=== PATIENT | female | born 2000 | race Caucasian/White ===

== ENCOUNTER 2022-11-16 13:51 | Outpatient (CLI) | payer BC, SELFPAY ==
--- NOTE | 2022-11-16 | US_ITS ---
WS: [id number] OBSTETRICAL ULTRASOUND COMPLETE HISTORY: ANATOMY; NORMAL 2ND TRIMESTER COMPARISON: None available. Single intrauterine gestation in breech presentation. Cervix is Closed and normal length. Cervical length is 4.5 cm. Normal amount of amniotic fluid surrounds the fetus. Placenta: Anterior, no previa or abruption. Placenta grade 0 Heart: 144 BPM. Four chambers are identified. Outflow tracts are limited but unremarkable. Anatomy: Intracranial structures and spine are normal. kidneys, stomach and urinary bladd er are unremarkable. Abdominal wall, three-vessel cord and cord insertion site are normal. 4 extremities are present. profile: Unremarkable. Gender: Female. measurements: BPD = 3.9 cm = 18w0d; HC = 16.2 cm = 19w0d; AC = 13.8 cm = 19w2d; FL = 3.0 cm = 19w1d; EFW: 276 g. Biometry is internally concordant. AGA by ultrasound: 19w0d BAM by ultrasound: 04/12/2023 US/US OB >= 14 weeks fetus [id number] IMPRESSION: 1. Single intrauterine gestation of 19w0d with an BAM of 04/12/2023. 2. Unremarkable screening survey of anatomy.
== END 2022-11-16 13:52 | disposition home or self-care (01) ==
PROVIDERS: PCP Family Medicine; Visit Provider Family Medicine
DX: Z36.89 Encounter for other specified antenatal screening (principal); Z3A.19 19 weeks gestation of pregnancy
CPT/HCPCS: 76805

== ENCOUNTER 2023-04-17 07:20 | Inpatient (IN) | payer BC, SELFPAY ==
[2023-04-16] VITALS (12 sets, daily range): BP systolic 103–143; BP diastolic 60–81; PULSE 75–93; RESP 16; TEMP 36.9; BMI 32.7
[2023-04-16] MEDS: miSOPROStol 100 mcg tablet 25 MCG VAGINAL ×2 (15:11→21:35)
[2023-04-16 15:19] LABS: Basophils % 0.2 %; Eosinophils % 0.3 %; Hematocrit 35.7 % (37.0-47.0); Hemoglobin 12.5 g/dL (11.5-15.3); Lymphocytes # 2.4 10^3/uL (0.8-4.8); Mean Corpuscular Hemoglobin 34.6 pg (28.0-34.0); Mean Corpuscular Volume 98.9 fl (81-99); Mean Platelet Volume 11.6 fL (7.4-10.4); Monocytes # 0.9 10^3/uL (0.2-0.9); Monocytes % 7.2 %; Neutrophils # 9.21 10^3/uL (1.8-7.7); Neutrophils % 72.2 %; Nucleated Red Blood Cells % 0 %; Platelet Count 202 10^3/cmm (130-400); Red Blood Count 3.61 10^6/uL (4.1-5.3); Red Cell Distribution Width 12.8 % (12.1-15.1); White Blood Count 12.8 10^3/uL (4.0-10.0)
[2023-04-16] MEDS: ampicillin 2,000 MG in sodium chloride 0.9% (plus) 50 ML 100 MG IV (21:35)
[2023-04-16] MEDS: dextrose 5%-lactated ringers 1,000 ML 125 ML IV (21:35)
[2023-04-17] VITALS (122 sets, daily range): BP systolic 92–138; BP diastolic 50–89; PULSE 65–126; RESP 16–17; TEMP 36.6–37.1; O2SAT 96–99
[2023-04-17] MEDS: ampicillin 1,000 MG in sodium chloride 0.9% (plus) 50 ML 100 MG IV ×5 (01:27→17:40)
[2023-04-17] MEDS: fentaNYL 50 mcg/mL INJ 2mL IVP (05:39)
[2023-04-17] MEDS: lactated ringers 1,000 ML 999 ML IV ×2 (06:20→07:35)
--- NOTE | 2023-04-17 08:02 | P.ANESUD_ITS ---
Pre-Anesthetic Update Pre-Anesthetic Assessment: Date of Surgery/Procedure: 04/17/23 Preop Lucy gnosis: IUP Proposed Procedure: Labor Epidural Any changes to Pre-Anesthetic Assessment?: No Last Intake: 1999- 04/16/23 solid clears- current Labs Last 48hrs: Short CBC 04/16/23 Range/Units 15:00 WBC 12.8 H (4.0-10.0) 10^3/ uL Hgb 12.5 (11.5-15.3) g/dL Hct 35.7 L (37.0-47.0) % MCV 98.9 (81-99) fl Plt Count 202 (130-400) 10^3/c mm Neut % (Auto) 72.2 % Neut # (Auto) 9.21 H (1.8-7.7) 10^3/u L Vitals: Temperature 98.5 F 04/16/23 21:50 Temperature Source Oral 04/16/23 21:50 Pulse Rate 81 04/17/23 08:00 Pulse Rhythm Regular 04/16/23 13:13 Respiratory Rate 16 04/17/23 05:39 Respiratory Effort Spontaneous, Non- Labored 04/17/23 05:39 Respiratory Depth Normal 04/17/23 05:39 Respiratory Patter n Normal 04/17/23 05:39 Blood Pressure 114/67 04/17/23 08:00 Pulse Oximetry 98 04/17/23 07:58 Oxygen Delivery Me thod Room Air 04/16/23 13:13 Cardiac Studies: No Data to Display Anesthesia Procedures Epidural: Time Out Performed: Yes Consents Signed: Procedure Consent Consent: requested by attending/covering physician and from patient Lumbar Level: L3-L4 Epidural position: sitting Epidural procedure: sterile prep of area, 1% lidocaine to numb the area, negative for paresthesia passed, test dose given, 1.5% xylocaine 1:200k epi (5 ml), placed PCEA (10 ml/hr), no systemic response, sterile dressing applied, L.U.D. no apparent complications and 0.2% Ropiavacaine @ mls/hr (10 ml/hr with 5 ml Bolus available) Additional Comments: BRODERICK at 5 cm on first attempt catheter threaded to 11cm. 5ml test dose given with no response. - heme -csf. 100mcg Fentanyl, remaining saline, and remaining lidocaine in kit given via epidural VSS. Connected to HAND RIVETER 10 ml/hr with 5ml bolus x 4 available.
[2023-04-17] MEDS: dextrose 5%-lactated ringers 1,000 ML 125 ML IV ×2 (08:30→14:37)
--- NOTE | 2023-04-17 18:23 | PM.OPHPUD ---
Labor & Delivery H&P Update Date of Procedure: April 17, 2023 Date H&P Performed: 04/14/23 Admission Diagnosis: at 40 weeks 4 days gestation Preop diagnosis: IUP Planned procedure: Induction of labor
--- NOTE | 2023-04-17 18:24 | P.PCNOB_ITS ---
Delivery Note: Date of delivery: April 17, 2023 Estimated blood loss (mL): 100 Pre-Delivery Course: The patient had routine care at [facility]. Her BAM was 04/12/23 by LMP and 6 wk u/s. She was blood type O+, antibody negative, hepatitis B nonreactive, hepatitis C nonreactive, HIV nonreactive, rubella immune, GC chlamydia negative, RPR nonreactive, UDS negative, she passed her 1 hour glucose test, she was GBS positive. Delivery: This is a 23-year-old at 40 weeks 5 days gestation who was admitted yesterday for induction due to postdates. She was known to be GBS positive and received multiple doses of ampicillin prior to delivery. Her cervix was not favorable and she was started on Cytotec which she received 2 doses. Then she was placed on Pitocin. She underwent artificial rupture of membranes with thick meconium noted. Rupture of membranes was approximately 7-1/2 hours prior to delivery. She received an epidural for pain management. She only had to push through 6 contractions and she had a normal spontaneous vaginal delivery of a viable female weight 3610 g, 7 pounds 15 ounces Apgars 8 and 9 over an intact perineum. The was suctioned at delivery and placed on the mother's chest. The cord was clamped and cut. The placenta was delivered grossly intact and normal to inspection. There was a second-degree perineal laceration that was sutured using 3-0 chromic. Mother and were doing well after delivery. Estimated blood loss 100 mL A&P Assessment and plan (1) (normal spontaneous vaginal delivery): Coding Level of Care Code Acute Code for Chg Fwd Diagnoses (normal spontaneous vaginal delivery) O80
[2023-04-18] MEDS: ibuprofen 800 mg tablet PO ×3 (00:10→16:02)
[2023-04-18 04:00] VITALS: BP 102/65; PULSE 76; RESP 16; TEMP 36.8; O2SAT 97
[2023-04-18 06:18] LABS: Hematocrit 30.7 % (37.0-47.0); Hemoglobin 10.5 g/dL (11.5-15.3); Mean Corpuscular HGB Conc 34.2 g/dL (30.0-36.0); Mean Corpuscular Volume 99.4 fl (81-99); Mean Platelet Volume 10.9 fL (7.4-10.4); Platelet Count 163 10^3/cmm (130-400); Red Blood Count 3.09 10^6/uL (4.1-5.3); Red Cell Distribution Width 12.6 % (12.1-15.1); White Blood Count 14.6 10^3/uL (4.0-10.0)
[2023-04-18 08:15] VITALS: BP 113/74; PULSE 91; RESP 18; TEMP 37.2; O2SAT 97
[2023-04-18] MEDS: docusate sodium 100 mg Capsule PO ×2 (09:28→19:47)
[2023-04-18] MEDS: prenatal vitamin Capsule 1 CAP PO (09:29)
--- NOTE | 2023-04-18 09:48 | ANE.PACU2 ---
Inpatient post-anesthesia follow up: Airway intact: Yes Vital signs: Temperature 98.2 F Pulse Rate 76 Respiratory Rate 16 Blood Pressure 102/65 Pulse Oximetry 97 Oxygen Delivery Me thod Room Air Oxygen Flow Rate Fraction of Inspir ed Oxygen Hydration adequate: Yes Nausea and vomiting: No Pain level: 2 Mental status: Baseline
--- NOTE | 2023-04-18 11:30 | P.DS_ITS ---
Discharge Providers Date of Admission: 04/17/23 07:20 Date of Discharge: April 18, 2023 Attending Provider at Admission: Eloise Horner MD Attending Provider at Discharge: Eloise Horner MD Primary Care Provider: Eloise Horner MD Diagnoses at Discharge Discharge Diagnosis (1) (normal spontaneous vaginal delivery): Status: Acute Reason for Visit Reason for Visit: induction Hospital Course Hospital Course This is a 23-year-old G1 now P1 who had a normal spontaneous vaginal delivery of a 40-week 5-day gestation female . Mother and infant have done well . Mother is ambulating, tolerating a regular diet, has had average vaginal bleeding and is comfortable with discharge home. Physical Exam Narrative: Resting in bed, easily arousable, heart regular rate and rhythm, lungs clear to auscultation bilaterally, abdomen is soft and nontender, fundus is firm and U - 3, extremities have some edema but no calf tenderness. Urinary Catheter Management: Dinh Latex: Cath Placed During This Visit: yes, but has since been removed by the nurse Reason for Continuing Indwelling Catheter: Decision to DC Catheter Urinary Catheter Date of Insertion: 04/17/23 Urinary Catheter Time of Insertion: 08:35 Date Urinary Catheter Removed: 04/17/23 Time Urinary Catheter Discontinued: 17:44 Discharge Data Studies Completed and Pending Laboratory Results WBC 14.6 10^3/uL (4.0-10.0) H 04/18/23 06:10 RBC 3.09 10^6/uL (4.1-5.3) L 04/18/23 06:10 Hgb 10.5 g/dL (11.5-15.3) L 04/18/23 06:10 Hct 30.7 % (37.0-47.0) L 04/18/23 06:10 MCV 99.4 fl (81-99) H 04/18/23 06:10 MCH 34.0 pg (28.0-34.0) 04/18/23 06:10 MCHC 34.2 g/dL (30.0-36.0) 04/18/23 06:10 RDW 12.6 % (12.1-15.1) 04/18/23 06:10 Plt Count 163 10^3/cmm (130-400) 04/18/23 06:10 MPV 10.9 fL (7.4-10.4) H 04/18/23 06:10 Neut % (Auto) 72.2 % 04/16/23 15:00 Lymph % (Auto) 19.0 % 04/16/23 15:00 [place] % (Auto) 7.2 % 04/16/23 15:00 Eos % (Auto) 0.3 % 04/16/23 15:00 Baso % (Auto) 0.2 % 04/16/23 15:00 Neut # (Auto) 9.21 10^3/uL (1.8-7.7) H 04/16/23 15:00 Lymph # (Auto) 2.4 10^3/uL (0.8-4.8) 04/16/23 15:00 [place] # (Auto) 0.9 10^3/uL (0.2-0.9) 04/16/23 15:00 Eos # (Auto) 0.0 10^3/uL (0.0-0.8) 04/16/23 15:00 Baso # (Auto) 0.0 10^3/uL (0.0-0.1) 04/16/23 15:00 Nucleated RBC % (auto) 0 % 04/16/23 15:00 Nucleated RBCs # 0.0 /100WBC 04/16/23 15:00 Vitals Last Vital Signs Temp 98.9 F 04/18/23 08:15 Pulse 91 04/18/23 08:15 Resp 18 04/18/23 08:15 BP 113/74 04/18/23 08:15 Pulse Ox 97 04/18/23 08:15 O2 Del Method Room Air 04/18/23 08:15 Discharge Plan Discharge Patient Disposition: Home Condition: Stable Discharge Orders: Discharge Order (Routine); Ordered 04/18/23 Ordered By: Eloise Horner Referrals: Eloise Horner MD [Primary Care Provider] - 1 month Discharge Diet: Usual diet Discharge Activity: Limit activity as instructed Patient Instructions: Opioid Safety Discharge Attestations Time Spent in Discharge Care*: less than 30 min Quality Metrics Clinical Quality Measures [ No reported AMI, CVA or VTE this stay] Coding Level of Care Code Acute Code for Chg Fwd Diagnoses (normal spontaneous vaginal delivery) O80
[2023-04-18 12:00] VITALS: BP 114/74; PULSE 88; RESP 18; TEMP 36.3; O2SAT 98
[2023-04-18 16:03] VITALS: BP 119/81; PULSE 104; RESP 18; TEMP 36.4; O2SAT 97
[2023-04-18 19:50] VITALS: BP 118/81; PULSE 98; RESP 18; TEMP 36.7; O2SAT 97
== END 2023-04-18 20:15 | disposition home or self-care (01) | DRG 807 ==
LOC: OPOB 07:20 → OBGYN 07:20
PROVIDERS: Admitting Provider Family Medicine; PCP Family Medicine; Visit Provider Family Medicine
DX: O48.0 Post-term pregnancy (principal); Z37.0 Single live birth; Z3A.40 40 weeks gestation of pregnancy; O99.824 Streptococcus B carrier state complicating childbirth; O77.0 Labor and delivery complicated by meconium in amniotic fluid; O70.1 Second degree perineal laceration during delivery
CPT/HCPCS: 36415; 51702; 59025; 59409; 85025; 85027; 96374; J0290; J2795; J3010; J7040; J7120; J7121

== ENCOUNTER 2025-04-25 16:50 | Inpatient (IN) | payer BC, SELFPAY ==
[2025-04-25] VITALS (115 sets, daily range): BP systolic 66–134; BP diastolic 36–78; PULSE 56–105; RESP 16–18; TEMP 36.7–36.8; O2SAT 88–100; BMI 30.2
[2025-04-25 16:47] LABS: Hematocrit 38.4 % (36-47); Hemoglobin 13.50 g/dL (11.27-16.99); Mean Corpuscular HGB Conc 35.2 g/dL (30-55); Mean Corpuscular Hemoglobin 33.8 pg (27-33); Mean Corpuscular Volume 96.0 fl (85-98); Nucleated Red Blood Cells % 0 %; Platelet Count 187 10^3/cmm (157-399); Red Blood Count 4.00 10^6/uL (3.85-5.65); White Blood Count 14.25 10^3/uL (3.29-11.43)
--- NOTE | 2025-04-25 19:15 | ANES.PREANE2 ---
Pre-Anesthetic Assessment Height/Weight: Height 1.57 m Weight 74.843 kg Temp Pulse Resp BP O2 Del Method 98.2 F 79 18 109/70 Room Air 04/25/25 17:00 04/25/25 18:52 04/25/25 18:14 04/25/25 18:52 04/25/25 16:44 Epidural Familial anesthetic complications: None Was Beta Hany taken within 24 hours: N/A Was Clonidine taken within 24 hours: N/A Last intake: 1400 Social No alcohol and No tobacco Exam alert, oriented x 3, clear to auscultation bilaterally and regular rate & rhythm Airway Submandibular: within normal limits Cervical ROM: within normal limits Mallampati: Class II Dentition: chipped and full History/ROS No significant history except as noted and No significant complaints Pulmonary None reported CV/HEM None reported None reported Hepatic None reported GI None reported Metabolic None reported Musc/skel None reported Neuropsych None reported Anesthetic Plan ASA status: 2 Anesthesia: Anesthesia Evaluation, General and Regional (specify below) (Epidural) Risk of > 500 ml blood loss (7ml/kg in children): Yes, adequate IV access and fluids planned Medications/Allergies Allergies Allergy/AdvReac Type Severity Reaction Status Date / Time cinnamon Allergy Severe ALGY-Difficulty Verified 04/17/23 01:27 Breathing Current Medications Generic Name Dose Route Start Last Admin Trade Name Freq PRN Reason Stop Dose Admin Lactated Ringer's 1,000 mls @ 999 mls/hr 04/25/25 16:20 04/25/25 18:21 Lactated Ringers IV 999 mls/hr .Q1H1M PRN Administration See label comments PFS Anesthesia Female Reproductive History Date of last menstrual period: 07/11/24 : 2 Data Anesthesia 04/25/25 16:30 Short CBC 04/25/25 Range/Units 16:30 WBC 14.25 H (3.29-11.43) 10^3/uL Hgb 13.50 (11.27-16.99) g/dL Hct 38.4 (36-47) % MCV 96.0 (85-98) fl Plt Count 187 (157-399) 10^3/cmm Neut % (Auto) 79.8 % Neut # (Auto) 11.35 H (1.8-7.7) 10^3/uL Blood Bank 04/25/25 16:30 Blood Type O Positive Rho(D) Type Rh positive Antibody Screen Negative
[2025-04-25] MEDS: ROPivacaine premix 200 MG/100 ML PREMIX 10 MG EPIDURAL (19:45)
--- NOTE | 2025-04-25 19:46 | P.ANES_ITS ---
Anesthesia Procedures Procedure/Date: 04/25/25 Epidural: Time Out Performed: Yes Consents Signed: Procedure Consent and NPO Consent Consent: requested by attending/covering physician, from patient, risks and benefits reviewed and patient agrees to proceed Lumbar Level: L3-L4 Epidural position: sitting Epidural procedure: sterile prep of area (betadine), 1% lidocaine to numb the area (3 mLs), neg for paresthesia, test dose given, 1.5% xylocaine 1:200k epi (3 mL/2 mL), placed PCEA, no systemic response, sterile dressing applied, L.U.D. no apparent complications and 0.2% Ropiavacaine @ mls/hr (10 mLs/hr) Additional Comments: BRODERICK 4cm, catheter threaded to 11cm. Negative aspiration for blood and CSF. Remaining saline and lidocaine from epidural kit given via epidural. Patient became hypotensive prior to saline and lidocaine. 100mcg anitha given via IV with nondenominational of BP. Patient stated the same thing happened when they inserted her IV. No complaints of dizziness or nausea. Patient tolerated procedure well.
[2025-04-26] VITALS (44 sets, daily range): BP systolic 93–120; BP diastolic 54–74; PULSE 64–115; RESP 16–18; TEMP 36.6–37.1; O2SAT 98–100
--- NOTE | 2025-04-26 01:55 | PM.OPHPUD ---
Labor & Delivery H&P Update Date of Procedure: April 26, 2025 Date H&P Performed: 04/24/25 Admission Diagnosis: IUP at 39 weeks 6 days gestation in active labor Planned procedure: Expectant management of labor and delivery
--- NOTE | 2025-04-26 01:56 | P.PCNOB_ITS ---
Delivery Note: Date of delivery: April 26, 2025 Procedure: Normal spontaneous vaginal delivery Estimated blood loss (mL): 150 Pre-Delivery Course: The patient had routine care at [facility]. She was blood type O+ antibody negative, hepatitis B nonreactive, hepatitis C nonreactive, HIV nonreactive, RPR nonreactive, rubella immune, GC chlamydia negative, she failed her 1 hour but passed her 3-hour glucose tolerance test, she was GBS negative. Delivery: This is a 25-year-old G2, P1 who was admitted at 39 weeks 6 days gestation and delivered at 40 weeks gestation. She was admitted in active labor and did receive an epidural for pain management. Her labor progressed well on its own. When she was complete and +2 she underwent artificial rupture of membranes with clear fluid. Rupture of membranes was less than 10 minutes prior to delivery. she only had to push through 1 contraction and had a normal spontaneous vaginal delivery of a viable male infant weight 3845 g, 8 pounds 8 ounces, Apgars 9 and 9 over an intact perineum. The infant was suctioned at delivery and placed on the mother's chest. The cord was clamped and cut. Cord blood was obtained. The placenta was delivered grossly intact and normal to inspection. There were no lacerations. Mother and were doing well after delivery. A&P Assessment and plan 1. (normal spontaneous vaginal delivery): PDMP PDMP Reviewed: Not Reviewed Coding Level of Care Code Acute Code for Chg Fwd Diagnoses (normal spontaneous vaginal delivery) O80
[2025-04-26] MEDS: oxytocin 30 UNIT/500 ML BAG 600 UNIT IV (02:39)
[2025-04-26] MEDS: benzocaine-menthol 78 gm Canister 1 SPRAY TOPICAL (06:30)
--- NOTE | 2025-04-26 08:20 | ANE.PACU2 ---
Inpatient post-anesthesia follow up: Airway intact: Yes Vital signs: Temperature 98.4 F Pulse Rate 68 Respiratory Rate 16 Blood Pressure 105/62 Pulse Oximetry 99 Oxygen Delivery Me thod Room Air Oxygen Flow Rate Fraction of Inspir ed Oxygen Hydration adequate: Yes Nausea and vomiting: No Pain level: 1 Mental status: Baseline Epidural Start/End: Epidural Start Date: 04/25/25 Epidural Start Time: 19:22 Epidural End Date: 04/26/25 Epidural End Time: 02:03
[2025-04-26] MEDS: PRENATAL VIT NO.130/IRON/FOLIC 1 EACH TABLET PO (09:30)
[2025-04-26 14:21] LABS: Hematocrit 37.8 % (36-47); Hemoglobin 13.10 g/dL (11.27-16.99); Mean Corpuscular HGB Conc 34.7 g/dL (30-55); Mean Corpuscular Hemoglobin 33.9 pg (27-33); Mean Corpuscular Volume 97.9 fl (85-98); Platelet Count 184 10^3/cmm (157-399); Red Blood Count 3.86 10^6/uL (3.85-5.65); White Blood Count 14.86 10^3/uL (3.29-11.43)
[2025-04-27 04:00] VITALS: BP 104/63; PULSE 98; RESP 16; TEMP 36.8; O2SAT 99
[2025-04-27 09:05] VITALS: BP 111/66; PULSE 78; RESP 16; TEMP 36.4; O2SAT 97
[2025-04-27] MEDS: PRENATAL VIT NO.130/IRON/FOLIC 1 EACH TABLET PO (09:08)
--- NOTE | 2025-04-27 10:18 | PM.DCS ---
Discharge Providers Date of Admission: 04/25/25 16:50 Date of Discharge: April 27, 2025 Attending Provider at Admission: Eloise Horner MD Attending Provider at Discharge: Eloise Horner MD Primary Care Provider: Eloise Horner MD Diagnoses at Discharge Discharge Diagnosis 1. (normal spontaneous vaginal delivery): Reason for Visit Reason for Visit: Ctx Hospital Course Hospital Course This is a 25-year-old G2 now P2 who had a normal spontaneous vaginal delivery of a viable male . She has done well . She is ambulating, tolerating a regular diet, and is comfortable with discharge home. Physical Exam Narrative: Alert and oriented sitting in bed holding the infant, heart regular rate and rhythm, lungs clear to auscultation bilaterally, abdomen is soft and nontender, fundus is firm, extremities have trace edema but no calf tenderness Urinary Catheter Management: Dinh: Cath Placed During This Visit: yes, but has since been removed by the nurse Reason for Continuing Indwelling Catheter: Decision to DC Catheter Urinary Catheter Date of Insertion: 04/25/25 Urinary Catheter Time of Insertion: 20:44 Date Urinary Catheter Removed: 04/26/25 Time Urinary Catheter Discontinued: 01:15 Discharge Data Studies Completed and Pending Laboratory Results WBC 14.86 10^3/uL (3.29-11.43) H 04/26/25 14:10 RBC 3.86 10^6/uL (3.85-5.65) 04/26/25 14:10 Hgb 13.10 g/dL (11.27-16.99) 04/26/25 14:10 Hct 37.8 % (36-47) 04/26/25 14:10 MCV 97.9 fl (85-98) 04/26/25 14:10 MCH 33.9 pg (27-33) H 04/26/25 14:10 MCHC 34.7 g/dL (30-55) 04/26/25 14:10 RDW 12.4 % (12.1-15.1) 04/26/25 14:10 Plt Count 184 10^3/cmm (157-399) 04/26/25 14:10 MPV 10.6 fL (7.4-10.4) H 04/26/25 14:10 Neut % (Auto) 79.8 % 04/25/25 16:30 Lymph % (Auto) 14.9 % 04/25/25 16:30 [place] % (Auto) 4.2 % 04/25/25 16:30 Eos % (Auto) 0.2 % 04/25/25 16:30 Baso % (Auto) 0.1 % 04/25/25 16:30 Neut # (Auto) 11.35 10^3/uL (1.8-7.7) H 04/25/25 16:30 Lymph # (Auto) 2.1 10^3/uL (0.8-4.8) 04/25/25 16:30 [place] # (Auto) 0.6 10^3/uL (0.2-0.9) 04/25/25 16:30 Eos # (Auto) 0.0 10^3/uL (0.0-0.8) 04/25/25 16:30 Baso # (Auto) 0.0 10^3/uL (0.0-0.1) 04/25/25 16:30 Nucleated RBC % (auto) 0 % 04/25/25 16:30 Nucleated RBCs # 0.0 /100WBC 04/25/25 16:30 Fluid pH (paper) Cancelled 04/26/25 03:52 Urine Opiates Screen Cancelled 04/25/25 15:07 Ur Barbiturates Screen Cancelled 04/25/25 15:07 Ur Phencyclidine Scrn Cancelled 04/25/25 15:07 Ur Amphetamines Screen Cancelled 04/25/25 15:07 U Benzodiazepines Scrn Cancelled 04/25/25 15:07 Urine Cocaine Screen Cancelled 04/25/25 15:07 U Marijuana (THC) Screen Cancelled 04/25/25 15:07 Blood Type O Positive 04/25/25 16:30 Rho(D) Type Rh positive 04/25/25 16:30 Antibody Screen Negative 04/25/25 16:30 Vitals Last Vital Signs Temp 97.6 F 04/27/25 09:05 Pulse 78 04/27/25 09:05 Resp 16 04/27/25 09:05 BP 111/66 04/27/25 09:05 Pulse Ox 97 04/27/25 09:05 O2 Del Method Room Air 04/27/25 09:05 Discharge Plan Discharge Patient Disposition: Home Condition: Stable Discharge Order = DC NOW: Discharge Order (Routine); Ordered 04/27/25 Ordered By: Eloise Horner Referrals: Eloise Horner MD [Primary Care Provider, [facility]] Referral Note: 1 month Discharge Diet: Usual diet Discharge Activity: Limit activity as instructed Patient Instructions: Depression (DC), Opioid Safety (DC), Preeclampsia and Eclampsia After Delivery (GEN), Hemorrhage (DC), OB Discharge Report, OB Food/Drug Interaction Guide, OB Care at Home, Opioid Safety, OB Vaginal Deliveries, Patient Portal & Janice Instructions, Abnormal Bleeding Activity Restrictions/Additional Instructions: Nothing per vagina for 6 weeks Discharge Attestations Time Spent in Discharge Care*: less than 30 min Quality Metrics Clinical Quality Measures [ No reported AMI, CVA or VTE this stay] Coding Level of Care Code Acute Code for Chg Fwd Diagnoses (normal spontaneous vaginal delivery) O80
[2025-04-27 11:15] VITALS: BP 112/74; PULSE 75; RESP 17; TEMP 36.6; O2SAT 96
[2025-04-27 11:28] VITALS: BP 112/74; PULSE 75; RESP 17; TEMP 36.6; O2SAT 96
== END 2025-04-27 11:33 | disposition home or self-care (01) | DRG 807 ==
LOC: OPOB 16:50 → OBGYN 16:50
PROVIDERS: Admitting Provider Family Medicine; PCP Family Medicine; Visit Provider Family Medicine
DX: O80 Encounter for full-term uncomplicated delivery (principal); Z37.0 Single live birth; Z3A.39 39 weeks gestation of pregnancy
CPT/HCPCS: 36415; 51702; 59025; 59409; 80306; 85025; 85027; 86850; 86900; 99211; J2590; J2795; J7120; J7121; J9999